=== PATIENT | female | born 1975 | race African-American/Black ===

== ENCOUNTER → 2022-11-07 13:31 | Outpatient (BNVA) | payer OTHER, SELFPAY | PROVIDERS: Visit Provider Physician Assistant Medical | DX: S80.02XA Contusion of left knee, initial encounter (principal); S60.414A Abrasion of right ring finger, initial encounter; W10.9XXA Fall (on) (from) unspecified stairs and steps, initial encounter | CPT/HCPCS: 99203 ==

== ENCOUNTER → 2022-11-08 13:56 | Outpatient (BNVA) | payer OTHER, SELFPAY | PROVIDERS: Visit Provider Internal Medicine | DX: M25.562 Pain in left knee (principal); Z91.81 History of falling | CPT/HCPCS: 99213 ==

== ENCOUNTER → 2022-11-15 12:52 | Outpatient (BNVA) | payer OTHER, SELFPAY | PROVIDERS: Visit Provider Internal Medicine | DX: M23.42 Loose body in knee, left knee (principal); M17.12 Unilateral primary osteoarthritis, left knee; Z91.81 History of falling | CPT/HCPCS: 99213 ==

== ENCOUNTER → 2022-12-07 09:03 | Outpatient (BNVA) | payer OTHER, SELFPAY | PROVIDERS: Visit Provider Physician Assistant | DX: S80.02XD Contusion of left knee, subsequent encounter (principal); W10.9XXD Fall (on) (from) unspecified stairs and steps, subsequent encounter | CPT/HCPCS: 99213 ==

== ENCOUNTER 2022-12-22 05:14 | Outpatient (REF) | payer OTHER, SELFPAY ==
--- NOTE | ~2022-12-22 | XR_ITS ---
EXAMINATION: XR KNEE AP STANDING CLINICAL INFORMATION: Pain in unspecified knee COMPARISON: None available. TECHNIQUE: AP bilateral standing view of the knees was obtained. [place] view of the left knee. FINDINGS: Right knee: Moderate medial joint space narrowing with medial marginal osteophytes. Left knee: Moderate medial joint space narrowing with medial marginal osteophytes. Tiny posterior patellar osteophytes. Previously identified bony exostosis versus ossicle overlying the anterior aspect of the tibia on the lateral lateral view is not well visualized today as a lateral view was not provided. XR/XR knee LT 1V IMPRESSION: Moderate degenerative changes.
--- NOTE | ~2022-12-22 | XR_ITS ---
EXAMINATION: XR KNEE AP STANDING CLINICAL INFORMATION: Pain in unspecified knee COMPARISON: None available. TECHNIQUE: AP bilateral standing view of the knees was obtained. [place] view of the left knee. FINDINGS: Right knee: Moderate medial joint space narrowing with medial marginal osteophytes. Left knee: Moderate medial joint space narrowing with medial marginal osteophytes. Tiny posterior patellar osteophytes. Previously identified bony exostosis versus ossicle overlying the anterior aspect of the tibia on the lateral lateral view is not well visualized today as a lateral view was not provided. XR/XR knee standing BI IMPRESSION: Moderate degenerative changes.
== END 2022-12-22 05:15 | disposition home or self-care (01) ==
LOC: HO.HOSX 05:14
PROVIDERS: Visit Provider Physician Assistant
DX: M17.12 Unilateral primary osteoarthritis, left knee (principal)
CPT/HCPCS: 73560; 73565

== ENCOUNTER 2022-12-22 12:36 | Outpatient (AMB) | payer OTHER, SELFPAY ==
--- NOTE | 2022-12-22 12:39 | A.OFFVIS_ITS ---
Intake Intake Visit Reasons: [employer]- Loose body in, left knee Intake Note: Bal is a 47 year old female who presents today for a new patient for her left knee pain, DOI 11/04/22. Patient reports she fell down the stairs leading her to injure her left knee. She states that when she takes Tylenol and ibuprofen with help her pain only for a short amount of time. Patient states that her knee is feeling a little better today.Patient reports that the doctor from the [facility] told her that she has a chip in her knee. Allergies No Known Allergies Allergy (Verified 12/22/22 12:47) HPI [employer]- Loose body in, left knee HPI Details 47-year-old female who presents in the office today, as a new patient, for an evaluation of left knee pain. The patient reports on 11/04/2022 she fell down the stairs and injured her left knee. She confirms taking Tylenol and Ibuprofen which gave her a short amount of pain relief. She claims the left knee feels a little better today. She claims the doctor at [facility] told her she chip in the left knee. The patient states she has a history of osteoarthritis in the bilateral knees diagnosed by her PCP. She states she feels her knees are uneasy all the time. She states she can not squat, run, and has a difficult time with use of stairs. She claims she has stiffness when she gets up in the morning. She states the pain is chronic and does not radiate. She denies a medical history of diabetes mellitus. She denies any known allergies. She was formally in the . This is a work related injury. 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 No ecchymosis, erythema, or joint effusion. No tenderness to palpation to the medial or lateral joint lines. Full knee extension and flexion. Crepitus felt with ROM. Negative Luli's. Negative anterior draw. NVI. Assessment & Plan Assessment & Plan (1) Osteoarthritis of left knee: Code(s): M17.12 - Unilateral primary osteoarthritis, left knee Plan Ms. Rutledge is a 47-year-old female who presents in the office today, as a new patient, for an evaluation of left knee pain. The patient reports on 11/04/2022 she fell down the stairs and injured her left knee. She confirms taking Tylenol and Ibuprofen which gave her a short amount of pain relief. She claims the left knee feels a little better today. She claims the doctor at [facility] told her she chip in the left knee. The patient states she has a history of osteoarthritis in the bilateral knees diagnosed by her PCP. She states she feels her knees are uneasy all the time. She states she can not squat, run, and has a difficult time with use of stairs. She claims she has stiffness when she gets up in the morning. She states the pain is chronic and does not radiate. She denies a medical history of diabetes mellitus. She denies any known allergies. She was formally in the . This is a work related injury. 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 I discussed the role of cortisone injections. Due to her not having a current flare up we would like to defer at this time. Follow up will be PRN, or sooner if needed. X-rays of the left knee which were obtained while in the office today and were reviewed by me, Sara Franco PA-C, revealed no acute fracture or dislocation. Osteoarthritis noted. CT of the left knee, obtained on 11/08/2022, revealed: 1. No acute abnormalities. 2. Osteoarthritis. 3. Small loose body; anterior aspect of the tibia. Orders: Orders XR knee LT 1V Today M25.569 - Pain in unspecified knee XR knee standing BI Today M25.569 - Pain in unspecified knee Patient Instructions: Scribed for Sara Franco PA-C by Margarita Nina medical librarian, on 12/22/2022 at 12:38 pm, EST. Coding Level of Care Code New Pt Level 3 (88842) Diagnoses Osteoarthritis of left knee M17.12
== END 2022-12-22 13:05 | disposition home or self-care (01) ==
PROVIDERS: Visit Provider Physician Assistant
DX: M17.12 Unilateral primary osteoarthritis, left knee (principal); M23.42 Loose body in knee, left knee
CPT/HCPCS: 99204